=== PATIENT | male | born 1975 | race Caucasian/White ===

== ENCOUNTER 2023-04-21 06:53 | Outpatient (CLI) | payer OTHER ==
--- NOTE | 2023-04-21 08:14 | MRI Report ---
PROCEDURE: LUMBAR SPINE WO INDICATIONS: LUMBAR RADICULOPATHY TECHNIQUE: Noncontrast sagittal T1 spin echo and T2 fast echo, sagittal STIR, axial T1 and T2 fast spin echo thr ough the lumbar spine. In cases with scoliosis, additional coronal T2 fast spin echo may be performe d. COMPARISON: None. FINDINGS: Image quality: Excellent. Alignment and Curvature: There is normal bony alignment. Bone Marrow: Marrow is of normal overall signal. No acute vertebral body compression fractures. Spinal Cord: Conus medullaris terminates at the T12 level. Visualized cord demonstrates normal sign al and size. Paraspinous Soft Tissues: No paravertebral masses. T12-L1: Normal in appearance. L1-L2: Normal in appearance. L2-L3: Normal in appearance. L3-L4: Minimal disc bulge. Epidural lipomatosis. No significant canal stenosis or foraminal stenosi s. L4-L5: Diffuse disc bulge with a small inferior left paracentral disc extrusion which slightly post eriorly displaces the left L5 nerve root in the left lateral recess. Disc extrusion measures approxim ately 7 x 14 x 6 mm. No significant foraminal stenosis. L5-S1: Posterior annulus tear plus broad-based posterior disc protrusion minimally displacing the b ilateral S1 nerve roots in the lateral recesses. IMPRESSION: 1. At L4-L5, a shallow left paracentral inferior disc extrusion slightly displaces the left L5 nerve root in the left lateral recess. Question: Does this patient with left L5 radiculopathy symptoms? 2. At L5-S1, there is posterior annulus tear posterior broad-based disc protrusion, minimally displac ing the bilateral S1 nerve roots in the lateral recesses. Question: Does this patient have sciatica s ymptoms? Reviewed by: Orion Hagen MD on 04/21/2023 8:13 AM PDT Approved by: Orion Hagen MD on 04/21/2023 8:13 AM PDT Station ID: [id number]
== END 2023-04-21 06:54 | disposition home or self-care (01) ==
LOC: DI 06:53
PROVIDERS: ATTEND Student in an Organized Health Care Education/Training Program
DX: M51.16 Intervertebral disc disorders with radiculopathy, lumbar region (principal); M51.17 Intervertebral disc disorders with radiculopathy, lumbosacral region